=== PATIENT | female | born 1980 | race American Indian/Alaskan Native ===

== ENCOUNTER 2017-11-11 23:06 | Emergency (ER) | payer BC, OTHER ==
[2017-11-11 23:29] VITALS: BP 144/79; PULSE 74; RESP 20; TEMP 98.2; O2SAT 100
[2017-11-11] MEDS ORDERED: Oxycodone/Acetaminophen 5/325 mg Tab PO STA (23:46)
[2017-11-11] MEDS ORDERED: Amoxicillin-Clav 875-125 mg Tab PO STA (23:46)
--- NOTE | 2017-11-11 23:48 | ED PDOC ---
HPI: CCC, URI, Sore Throat Time Seen by Provider: 11/11/17 23:42 Chief Complaint (Nursing): ENT Problem Chief Complaint (Provider): left ear pain History Per: Patient Additional Complaint(s): 37-year-old female presents with pain to left ear status post using a plastic sewing needle to try and remove wax from left ear a few days ago. Patient denies any bleeding, drainage or hearing loss. She complains of throbbing pain that radiates down her jaw. Motrin taken earlier did not help with the pain. Past Medical History Reviewed: Historical Data, Nursing Documentation, Vital Signs Vital Signs: Last Vital Signs Temp 98.2 F 11/11/17 23:26 Pulse 74 11/11/17 23:26 Resp 20 11/11/17 23:26 BP 144/79 11/11/17 23:26 Pulse Ox 100 11/11/17 23:56 - Medical History PMH: No Chronic Diseases - Family History Family History: States: No Known Family Hx - Living Arrangements Living Arrangements: With Family - Social History Current smoker - smoking cessation education provided: No Alcohol: None Drugs: Denies - Home Medications Home Medications: Ambulatory Orders Medication Instructions Recorded Acetaminophen/Oxycodone Hydr 1 tab PO Q6H PRN #8 tab 11/11/17 [Percocet 10/325 mg Tab] Amoxicillin/Clavulanate [Augmentin 1 tab PO BID #14 tab 11/11/17 875 MG-125 MG] Ciprofloxacin/Dexamethasone 1 drop BID #1 bottle 11/12/17 [Ciprodex 0.3%-0.1% 7.5 Ml] - Allergies Allergies/Adverse Reactions: Allergies Allergy/AdvReac Type Severity Reaction Status Date / Time No Known Allergies Allergy Verified 11/11/17 23:25 Review of Systems ROS Statement: Except As Marked, All Systems Reviewed And Found Negative Constitutional: Negative for: Fever ENT: Positive for: Ear Pain (left ear pain with no hearing loss) Respiratory: Negative for: Cough Gastrointestinal: Negative for: Nausea, Vomiting Neurological: Negative for: Headache, Dizziness Physical Exam - Reviewed Nursing Documentation Reviewed: Yes Vital Signs Reviewed: Yes - Physical Exam Appears: Positive for: Well, Non-toxic, No Acute Distress Skin: Positive for: Normal Color. Negative for: Rash Eye Exam: Positive for: Normal appearance ENT: Positive for: Other (Left ear demonstrates tympanic membrane perforation with no active bleeding or drainage, canal is clear with minimal amount of cerumen, no edema or exudate noted, right ear within normal limits, no mastoid tenderness bilaterally) Neck: Positive for: Normal Cardiovascular/Chest: Positive for: Regular Rate, Rhythm Respiratory: Positive for: Normal Breath Sounds Extremity: Positive for: Normal ROM Neurologic/Psych: Positive for: Alert, Oriented - Laboratory Results Urine POC: Negative (test declined, patient is certain she is not ) - ECG O2 Sat by Pulse Oximetry: 100 Pulse Ox Interpretation: Normal Medical Decision Making Medical Decision Makin37 y/o with left TM perforation Plan: 1 tab percocet Initial dose of augmentin Patient was advised to continue with ibuprofen, prescriptions given for Percocet , Augmentin and Ciprodex drops. Patient was referred to ear, nose and throat specialist for follow-up in 2-3 days. Disposition - Clinical Impression Clinical Impression: Tympanic membrane perforation - Patient ED Disposition Is Patient to be Admitted: No Counseled Patient/Family Regarding: Diagnosis, Need For Followup, Rx Given - Disposition Referrals: Daniel Cool MD [Staff Provider] - Disposition: Routine/Home Disposition Time: 23:47 Condition: STABLE Additional Instructions: Do not stick anything inside your ear. Take prescription meds as directed. Follow up with ear, nose and throat specialist for any persistent symptoms. Prescriptions: Acetaminophen/Oxycodone Hydr [Percocet 10/325 mg Tab] 1 tab PO Q6H PRN #8 tab PRN Reason: Pain, Severe (8-10) Amoxicillin/Clavulanate [Augmentin 875 MG-125 MG] 1 tab PO BID #14 tab Ciprofloxacin/Dexamethasone [Ciprodex 0.3%-0.1% 7.5 Ml] 1 drop BID #1 bottle Instructions: Ruptured Eardrum Forms: [employer] (Danish)
[2017-11-11] MEDS ORDERED: Oxycodone/Acetaminophen 5/325 mg Tab ONE (23:57)
== END 2017-11-12 00:15 | disposition home or self-care (01) ==
LOC: H.ER 23:06
DX: H72.92 Unspecified perforation of tympanic membrane, left ear (principal)